=== PATIENT | male | born 1965 | race Caucasian/White ===

== ENCOUNTER 2017-08-04 10:23 | Day surgery (SDC) | payer BC ==
[2017-08-04 11:37] LABS: ADD MAN DIFF? NO
[2017-08-04 11:42] LABS: BASOPHILS % 0.3 % (0.0-2.0); EOSINOPHILS # 0.1 10^3/ul (0.0-0.5); EOSINOPHILS % 1.8 % (0.0-7.0); HEMATOCRIT 43.8 % (42.0-52.0); HEMOGLOBIN 15.4 g/dl (14.0-18.0); LYMPHOCYTES # 2.5 10^3/ul (0.8-2.9); LYMPHOCYTES % 35.8 % (15.0-51.0); MEAN CORPUSCULAR HEMOGLOBIN 32.4 pg (29.0-33.0); MEAN CORPUSCULAR HGB CONC 35.2 g/dl (32.0-37.0); MEAN PLATELET VOLUME 10.9 fl (7.4-10.4); MONOCYTE # 0.4 10^3/ul (0.3-0.9); MONOCYTES % 5.4 % (0.0-11.0); NEUTROPHILS % 56.3 % (39.0-77.0); PLATELET COUNT 183 10^3/UL (140-415); RED BLOOD COUNT 4.76 10^6/ul (4.70-6.10); RED CELL DISTRIBUTION WIDTH 12.2 % (11.5-14.5)
[2017-08-04 11:48] LABS: ADD UMIC YES; UR ASCORBIC ACID NEGATIVE (NEGATIVE); UR BILIRUBIN (Dip) NEGATIVE (NEGATIVE); UR BLOOD (Dip) 2+ mg/dL (NEGATIVE); UR CLARITY CLEAR (CLEAR); UR COLOR YELLOW (YELLOW); UR GLUCOSE (Dip) NEGATIVE (NEGATIVE); UR KETONES (Dip) NEGATIVE (NEGATIVE); UR LEUKOCYTE ESTERASE (Dip) NEGATIVE Leu/ul (NEGATIVE); UR MUCUS FEW /HPF (NONE SEEN); UR NITRITE (Dip) NEGATIVE (NEGATIVE); UR RBC 1 /HPF (0-5); UR TOTAL PROTEIN (Dip) NEGATIVE (NEGATIVE); UR UROBILINOGEN (Dip) NEGATIVE (NEGATIVE); UR WBC 1 /HPF (0-5)
[2017-08-04 11:59] LABS: ALANINE AMINOTRANSFERASE 41 IU/L (13-69); ALBUMIN 4.2 g/dl (3.3-4.9); ALBUMIN/GLOBULIN RATIO 1.31; ALKALINE PHOSPHATASE 66 IU/L (42-121); ANION GAP 13 (8-16); ASPARTATE AMINO TRANSFERASE 30 IU/L (15-46); BILIRUBIN,INDIRECT 0.5 mg/dl (0-1.1); BILIRUBIN,TOTAL 0.5 mg/dl (0.2-1.3); CARBON DIOXIDE 26 mmol/L (21-31); CHLORIDE 108 mmol/L (97-110); GLUCOSE 89 mg/dl (70-220); TOTAL PROTEIN 7.4 g/dl (6.1-8.1)
[2017-08-04 12:02] LABS: INR 1.04; PROTIME 13.7 Sec (11.9-14.9); PT RATIO 1.1
[2017-08-04 12:03] LABS: PARTIAL THROMBOPLASTIN TIME 28.6 Sec (25.0-35.0)
[2017-08-04 12:18] LABS: BLOOD UREA NITROGEN 13 mg/dl (7-20); CALCIUM 9.3 mg/dl (8.4-10.2); CREATININE 0.98 mg/dl (0.61-1.24); POTASSIUM 4.4 mmol/L (3.5-5.1); SODIUM 143 mmol/L (135-144)
[2017-08-04] MEDS ORDERED: MIDAZOLAM 1 MG/ML 2 ML INJ (12:52)
[2017-08-04] MEDS ORDERED: PROPOFOL 20 ML (12:52)
[2017-08-04] MEDS ORDERED: FENTAnyl 50 MCG/ML VIAL (12:52)
[2017-08-04] MEDS ORDERED: CEFAZOLIN 1 GM INJ (12:52)
[2017-08-04] MEDS ORDERED: DEXAMETHASONE 4 MG/ML 1 ML INJ (13:21)
[2017-08-04] MEDS ORDERED: ONDANSETRON 4 MG INJ (13:21)
[2017-08-04] MEDS ORDERED: METOCLOPRAMIDE 10 MG INJ (13:21)
[2017-08-04] MEDS ORDERED: KETOROLAC 30 MG INJ (13:21)
[2017-08-04] MEDS ORDERED: SUGAMMADEX SODIUM 200 MG/2 ML VIAL IV (13:22)
[2017-08-04] MEDS ORDERED: EPHEDrine SULFATE 50 MG/5 ML SYG IV (13:30)
[2017-08-04] MEDS ORDERED: METOCLOPRAMIDE 10 MG INJ IV (13:30)
[2017-08-04] MEDS ORDERED: DIPHENHYDRAMINE 50 MG INJ IV (13:30)
[2017-08-04] MEDS ORDERED: FENTAnyl 50 MCG/ML VIAL IV ×3 (13:30)
[2017-08-04] MEDS ORDERED: LABETALOL HCL 20MG INJ IV (13:30)
[2017-08-04] MEDS ORDERED: MEPERIDINE 25 MG INJ IV (13:30)
[2017-08-04] MEDS ORDERED: ROCURONIUM 50 MG INJ (13:37)
[2017-08-04] MEDS ORDERED: HYDROCODONE/APAP (5/325) TAB PO (14:00)
[2017-08-04] MEDS ORDERED: ONDANSETRON 4 MG INJ IV (14:00)
[2017-08-04] MEDS: HYDROmorphONE (0.2 MG/ML) 10ML SYG IV ×2 (14:26→14:37)
[2017-08-04] MEDS: ONDANSETRON 4 MG INJ IV (14:28)
== END 2017-08-04 15:50 | disposition home or self-care (01) ==
LOC: SDS 10:23
DX: N20.0 Calculus of kidney (principal); E03.9 Hypothyroidism, unspecified; F17.200 Nicotine dependence, unspecified, uncomplicated
CPT/HCPCS: 50590; 71045; 74430; 80053; 81001; 85025; 85610; 85730; 87086; 93005

== ENCOUNTER 2018-11-28 12:55 | Inpatient (IN) | payer BC ==
[2018-11-28 14:15] LABS: ADD MAN DIFF? NO
[2018-11-28 14:16] LABS: WHITE BLOOD COUNT 8.1 10^3/ul (4.8-10.8)
[2018-11-28 14:16] LABS: BASOPHILS % 0.5 % (0.0-2.0); EOSINOPHILS # 0.2 10^3/ul (0.0-0.5); EOSINOPHILS % 2.6 % (0.0-7.0); HEMATOCRIT 45.5 % (42.0-52.0); HEMOGLOBIN 15.7 g/dl (14.0-18.0); LYMPHOCYTES # 2.1 10^3/ul (0.8-2.9); LYMPHOCYTES % 25.4 % (15.0-51.0); MEAN CORPUSCULAR HEMOGLOBIN 32.3 pg (29.0-33.0); MEAN CORPUSCULAR HGB CONC 34.5 g/dl (32.0-37.0); MEAN CORPUSCULAR VOLUME 93.6 fl (82.0-101.0); MEAN PLATELET VOLUME 10.4 fl (7.4-10.4); MONOCYTE # 0.5 10^3/ul (0.3-0.9); MONOCYTES % 5.7 % (0.0-11.0); NEUTROPHIL # 5.3 10^3/ul (1.6-7.5); NEUTROPHILS % 65.3 % (39.0-77.0); PLATELET COUNT 159 10^3/UL (140-415); POSITIVE DIFF @See below; RED BLOOD COUNT 4.86 10^6/ul (4.70-6.10); RED CELL DISTRIBUTION WIDTH 11.9 % (11.5-14.5)
[2018-11-28 14:50] LABS: ANION GAP 9 (5-13); BLOOD UREA NITROGEN 19 mg/dl (7-20); CALCIUM 9.5 mg/dl (8.4-10.2); CARBON DIOXIDE 24 mmol/L (21-31); CHLORIDE 107 mmol/L (97-110); CREATININE 1.89 mg/dl (0.61-1.24); Estimated GFR 38 mL/min (>60); GLUCOSE 104 mg/dl (70-220); POTASSIUM 4.1 mmol/L (3.5-5.1); SODIUM 140 mmol/L (135-144)
[2018-11-28] MEDS: HYDROmorphONE 0.5 MG/0.5 ML SYG IV ×4 (14:52→23:36)
[2018-11-28 15:10] LABS: ADD UMIC YES; UR ASCORBIC ACID NEGATIVE (NEGATIVE); UR BILIRUBIN (Dip) NEGATIVE (NEGATIVE); UR BLOOD (Dip) 2+ mg/dL (NEGATIVE); UR CLARITY CLEAR (CLEAR); UR COLOR YELLOW (YELLOW); UR GLUCOSE (Dip) NEGATIVE (NEGATIVE); UR KETONES (Dip) NEGATIVE (NEGATIVE); UR LEUKOCYTE ESTERASE (Dip) NEGATIVE Leu/ul (NEGATIVE); UR NITRITE (Dip) NEGATIVE (NEGATIVE); UR RBC 8 /HPF (0-5); UR TOTAL PROTEIN (Dip) NEGATIVE (NEGATIVE); UR UROBILINOGEN (Dip) NEGATIVE (NEGATIVE); UR WBC 1 /HPF (0-5)
[2018-11-28 15:19] LABS: ALANINE AMINOTRANSFERASE 51 IU/L (13-69); ALBUMIN 4.4 g/dl (3.3-4.9); ALKALINE PHOSPHATASE 66 IU/L (42-121); ASPARTATE AMINO TRANSFERASE 44 IU/L (15-46); BILIRUBIN,INDIRECT 0.3 mg/dl (0-1.1); BILIRUBIN,TOTAL 0.3 mg/dl (0.2-1.3); LIPASE 56 U/L (23-300); TOTAL PROTEIN 7.3 g/dl (6.1-8.1)
[2018-11-28] MEDS ORDERED: NACL 0.9% 3 ML SYG IV (19:00)
[2018-11-28] MEDS ORDERED: BISACODYL (EC) 5 MG TAB PO (19:00)
[2018-11-28] MEDS ORDERED: ACETAMINOPHEN 325 MG TAB PO (19:00)
[2018-11-28] MEDS ORDERED: DOCUSATE SODIUM 100 MG CAP PO (19:00)
[2018-11-28] MEDS: FAMOTIDINE 20 MG TAB PO (20:06)
[2018-11-28] MEDS: SOD CHLORIDE 0.9% 1,000 ML IV ×2 (20:10→22:12)
[2018-11-28 21:39] LABS: EOSINOPHILS % (M) 1 % (0-7); LYMPHOCYTES #M 1.8 10^3/ul (0.8-2.9); LYMPHOCYTES % (M) 23 % (15-51); MONOCYTE #M 0.3 10^3/ul (0.3-0.9); MONOCYTES % (M) 4 % (0-11); POIKILOCYTOSIS 1+ (0-0); SEGMENTED NEUTROPHILS (M) % 72 % (39-77); SMUDGE%M 16 % (0-0)
[2018-11-28] MEDS: morphine 2 MG INJ IV (22:10)
[2018-11-28] MEDS: NIFEdipine (XL) 30 MG TAB PO (22:45)
[2018-11-28] MEDS: NICOTINE (14 MG/24 HR) PATCH TRANSDERM (22:45)
[2018-11-28] MEDS: CEFTRIAXONE 1 GM/50 ML (PMX) 50 ML IVPB (22:46)
[2018-11-29 05:35] LABS: ADD MAN DIFF? NO
[2018-11-29 05:37] LABS: WHITE BLOOD COUNT 8.9 10^3/ul (4.8-10.8)
[2018-11-29 05:37] LABS: BASOPHILS % 0.4 % (0.0-2.0); EOSINOPHILS # 0.3 10^3/ul (0.0-0.5); HEMATOCRIT 41.3 % (42.0-52.0); LYMPHOCYTES # 2.3 10^3/ul (0.8-2.9); LYMPHOCYTES % 26.2 % (15.0-51.0); MEAN CORPUSCULAR HGB CONC 33.9 g/dl (32.0-37.0); MEAN CORPUSCULAR VOLUME 94.3 fl (82.0-101.0); MEAN PLATELET VOLUME 10.4 fl (7.4-10.4); MONOCYTE # 0.6 10^3/ul (0.3-0.9); MONOCYTES % 6.2 % (0.0-11.0); NEUTROPHIL # 5.7 10^3/ul (1.6-7.5); NEUTROPHILS % 63.6 % (39.0-77.0); PLATELET COUNT 187 10^3/UL (140-415); RED BLOOD COUNT 4.38 10^6/ul (4.70-6.10); RED CELL DISTRIBUTION WIDTH 11.9 % (11.5-14.5)
[2018-11-29 05:52] LABS: HEMOGLOBIN A1C 5.2 % (0-5.9)
[2018-11-29 06:07] LABS: ALANINE AMINOTRANSFERASE 54 IU/L (13-69); ALBUMIN 3.8 g/dl (3.3-4.9); ALBUMIN/GLOBULIN RATIO 1.31; ALKALINE PHOSPHATASE 63 IU/L (42-121); ANION GAP 8 (5-13); ASPARTATE AMINO TRANSFERASE 27 IU/L (15-46); BILIRUBIN,INDIRECT 0.6 mg/dl (0-1.1); BILIRUBIN,TOTAL 0.6 mg/dl (0.2-1.3); BLOOD UREA NITROGEN 14 mg/dl (7-20); CARBON DIOXIDE 25 mmol/L (21-31); CHLORIDE 105 mmol/L (97-110); Estimated GFR 54 mL/min (>60); GLUCOSE 95 mg/dl (70-220); MAGNESIUM 1.9 mg/dl (1.7-2.5); PHOSPHORUS 3.7 mg/dl (2.5-4.9); SODIUM 138 mmol/L (135-144); TOTAL PROTEIN 6.7 g/dl (6.1-8.1)
[2018-11-29] MEDS: SOD CHLORIDE 0.9% 1,000 ML IV ×2 (06:11→14:43)
[2018-11-29 06:12] LABS: PROTIME 14.3 Sec (11.9-14.9); PT RATIO 1.1
[2018-11-29] MEDS: HYDROmorphONE 0.5 MG/0.5 ML SYG IV ×4 (06:18→20:51)
[2018-11-29 06:36] LABS: THYROID STIMULATING HORMONE 0.192 MIU/L (0.465-4.680)
[2018-11-29] MEDS: METHIMAZOLE 5 MG TAB PO (08:27)
[2018-11-29] MEDS: NICOTINE (14 MG/24 HR) PATCH TRANSDERM (08:28)
[2018-11-29] MEDS: NIFEdipine (XL) 30 MG TAB PO ×2 (08:28→14:41)
[2018-11-29] MEDS: HYDROCODONE/APAP (5/325) TAB PO (08:34)
[2018-11-29] MEDS: ONDANSETRON 4 MG INJ IV ×3 (11:49→20:51)
[2018-11-29] MEDS ORDERED: FENTAnyl 50 MCG/ML VIAL (17:56)
[2018-11-29] MEDS ORDERED: ROCURONIUM 50 MG INJ (18:58)
[2018-11-29] MEDS ORDERED: SUCCINYLCHOLINE CHLORIDE 100 MG/5 ML SYG IV (18:58)
[2018-11-29] MEDS ORDERED: PROPOFOL 20 ML (18:58)
[2018-11-29] MEDS ORDERED: SUGAMMADEX SODIUM 200 MG/2 ML VIAL IV (18:58)
[2018-11-29] MEDS ORDERED: CEFAZOLIN 1 GM INJ (18:58)
[2018-11-29] MEDS ORDERED: LIDOCAINE 100 MG SYRINGE (18:58)
[2018-11-29] MEDS ORDERED: MEPERIDINE 25 MG INJ (20:25)
[2018-11-29] MEDS ORDERED: HYDROmorphONE 1 MG/5 ML IV SYRINGE IV ×3 (20:30)
[2018-11-29] MEDS ORDERED: ALBUTEROL 0.083% (NEB) 2.5 MG/3 ML AMP HHN (20:30)
[2018-11-29] MEDS ORDERED: FENTAnyl 50 MCG/ML VIAL IV (20:30)
[2018-11-29] MEDS ORDERED: hydrALAzine 20 MG INJ IV (20:30)
[2018-11-29] MEDS ORDERED: DIPHENHYDRAMINE 50 MG INJ IV (20:30)
[2018-11-29] MEDS: MEPERIDINE 25 MG INJ IV (20:47)
[2018-11-29] MEDS: FENTAnyl 50 MCG/ML VIAL IV (21:16)
[2018-11-29] MEDS: FAMOTIDINE 20 MG TAB PO (21:21)
[2018-11-29] MEDS: CEFTRIAXONE 1 GM/50 ML (PMX) 50 ML IVPB (21:58)
[2018-11-29] MEDS: morphine 2 MG INJ IV (22:11)
[2018-11-30] MEDS: morphine 2 MG INJ IV ×4 (01:44→16:02)
[2018-11-30] MEDS: SOD CHLORIDE 0.9% 1,000 ML IV ×2 (02:46→03:24)
[2018-11-30 05:19] LABS: ADD MAN DIFF? NO
[2018-11-30 05:24] LABS: WHITE BLOOD COUNT 10.3 10^3/ul (4.8-10.8)
[2018-11-30 05:24] LABS: BASOPHILS % 0.3 % (0.0-2.0); EOSINOPHILS # 0.2 10^3/ul (0.0-0.5); EOSINOPHILS % 1.5 % (0.0-7.0); HEMOGLOBIN 15.1 g/dl (14.0-18.0); LYMPHOCYTES % 19.6 % (15.0-51.0); MEAN CORPUSCULAR HEMOGLOBIN 31.9 pg (29.0-33.0); MEAN CORPUSCULAR HGB CONC 34.3 g/dl (32.0-37.0); MEAN PLATELET VOLUME 10.5 fl (7.4-10.4); MONOCYTE # 0.5 10^3/ul (0.3-0.9); NEUTROPHIL # 7.5 10^3/ul (1.6-7.5); PLATELET COUNT 188 10^3/UL (140-415); RED BLOOD COUNT 4.73 10^6/ul (4.70-6.10); RED CELL DISTRIBUTION WIDTH 11.8 % (11.5-14.5)
[2018-11-30 06:04] LABS: ALANINE AMINOTRANSFERASE 39 IU/L (13-69); ALBUMIN 4.1 g/dl (3.3-4.9); ALBUMIN/GLOBULIN RATIO 1.36; ALKALINE PHOSPHATASE 70 IU/L (42-121); ANION GAP 10 (5-13); ASPARTATE AMINO TRANSFERASE 27 IU/L (15-46); BILIRUBIN,INDIRECT 0.6 mg/dl (0-1.1); BILIRUBIN,TOTAL 0.6 mg/dl (0.2-1.3); BLOOD UREA NITROGEN 11 mg/dl (7-20); CALCIUM 9.5 mg/dl (8.4-10.2); CARBON DIOXIDE 25 mmol/L (21-31); CHLORIDE 104 mmol/L (97-110); CREATININE 1.31 mg/dl (0.61-1.24); Estimated GFR 58 mL/min (>60); GLUCOSE 93 mg/dl (70-220); POTASSIUM 4.1 mmol/L (3.5-5.1); SODIUM 139 mmol/L (135-144); TOTAL PROTEIN 7.1 g/dl (6.1-8.1)
[2018-11-30 06:06] LABS: FREE T4 (FREE THYROXINE) 1.24 ng/dl (0.64-1.79)
[2018-11-30] MEDS: NICOTINE (14 MG/24 HR) PATCH TRANSDERM (06:13)
[2018-11-30 06:21] LABS: TRIIODOTHYRONINE 0.99 ng/ml (0.97-1.69)
[2018-11-30] MEDS: METHIMAZOLE 5 MG TAB PO (08:34)
[2018-11-30] MEDS: HYDROCODONE/APAP (5/325) TAB PO (08:39)
== END 2018-11-30 16:50 | disposition home or self-care (01) | DRG 660 ==
LOC: E/R 12:55 → MS1 17:00
PROC: 0T778DZ Dilation of Left Ureter with Intraluminal Device, Via Natural or Artificial Opening Endoscopic (ICD-10-PCS; principal; 2018-11-29 17:30)
PROC: 0TC78ZZ Extirpation of Matter from Left Ureter, Via Natural or Artificial Opening Endoscopic (ICD-10-PCS; 2018-11-29 17:30)
DX: N13.2 Hydronephrosis with renal and ureteral calculous obstruction (principal); R65.10 Systemic inflammatory response syndrome (SIRS) of non-infectious origin without acute organ dysfunction; N17.9 Acute kidney failure, unspecified; E03.9 Hypothyroidism, unspecified; Z72.0 Tobacco use
CPT/HCPCS: 71045; 74018; 74176; 74430; 80048; 80053; 80076; 81001; 83036; 83690; 83735; 84100; 84439; 84443; 84480; 85025; 85610; 87086; 88300; 93005; 96374; 96376; 99285-25